=== PATIENT | male | born 1950 | race Caucasian/White ===

== ENCOUNTER → 2020-05-02 15:48 | Outpatient (CLI) | payer SELFPAY ==
--- NOTE | 2020-05-02 | DI.MRI.S_ITS ---
PROCEDURE: MR LUMBAR SPINE WO CON INDICATIONS: Pain, unspecified TECHNIQUE: Noncontrast sagittal T1 spin echo and T2 fast echo, sagittal STIR, axial T1 and T2 fast spin echo through the lumbar spine. In cases with scoliosis, additional coronal T2 fast spin echo may be performed. COMPARISON: [facility] [place], [place], XR LUMBAR SPINE 2 OR 3 VIEWS, 04/23/2020, 10:49. FINDINGS: Image quality: Excellent. Alignment and Curvature: Trace degenerative retrolisthesis of L5 on S1. Trace degenerative anterolisthesis of L4 on L5 and of L2 on L3. Bone Marrow: Marrow is of normal overall signal. No acute vertebral body compression fractures. Spinal Cord: Conus medullaris terminates at the T12-L1 level. Visualized cord demonstrates normal signal and size. Paraspinous Soft Tissues: No paravertebral masses. T12-L1: Mild facet hypertrophy. No canal stenosis or foraminal stenosis. L1-L2: Mild disc bulge. Facet and ligament hypertrophy. No significant canal stenosis. Mild bilateral foraminal stenosis. L2-L3: Disc bulge. Facet and ligament hypertrophy. Mild canal stenosis. No significant foraminal stenosis. L3-L4: Disc bulge. Facet and ligament hypertrophy. Mild canal stenosis. No foraminal stenosis. L4-L5: Trace degenerative anterolisthesis of L4 on L5. Diffuse disc bulge. Prominent facet and ligament hypertrophy. Severe canal stenosis. Mild bilateral foraminal stenosis. L5-S1: Disc bulge. Facet and ligament hypertrophy. Mild canal stenosis. Mild right foraminal stenosis. IMPRESSION: 1. Multilevel canal stenosis is mild at L2-L3, mild at L3-L4, severe at L4-L5, and mild at L5-S1. 2. Multilevel facet arthropathy. Dictated by: Anuj Lindo M.D. on 05/02/2020 at 17:04 Approved by: Anuj Lindo M.D. on 05/02/2020 at 17:09
== END ==
PROVIDERS: Family Provider Family Medicine; PCP Family Medicine; Referring Provider Family Medicine; Visit Provider Orthopaedic Surgery
DX: M54.5 Low back pain (principal); M79.605 Pain in left leg; M79.604 Pain in right leg; M47.816 Spondylosis without myelopathy or radiculopathy, lumbar region; M47.817 Spondylosis without myelopathy or radiculopathy, lumbosacral region; M48.061 Spinal stenosis, lumbar region without neurogenic claudication; M48.07 Spinal stenosis, lumbosacral region
CPT/HCPCS: 72148

== ENCOUNTER → 2021-04-27 11:06 | Outpatient (CLI) | payer SELFPAY ==
[2021-04-27 12:15] LABS: COVID19 -Nasal RAPID Negative (Negative)
== END ==
PROVIDERS: Family Provider Family Medicine; PCP Family Medicine; Visit Provider Physician Assistant
DX: Z01.812 Encounter for preprocedural laboratory examination (principal); Z20.822 Contact with and (suspected) exposure to COVID-19
CPT/HCPCS: 87635

== ENCOUNTER 2021-04-29 10:11 | Day surgery (SDC) | payer SELFPAY ==
[2021-04-23 14:56] VITALS: BMI 32.5
[2021-04-29] VITALS (9 sets, daily range): BP systolic 96–142; BP diastolic 42–82; PULSE 59–69; RESP 10–16; TEMP 36.3–36.9; O2SAT 95–100; BMI 32.4
--- NOTE | 2021-04-29 | DI.RAD.S_ITS ---
PROCEDURE: XR LUMBAR SPINE 2-3V INDICATIONS: L4-5 MICODISECTOMY TECHNIQUE: 2 intraoperative fluoroscopic views of the lumbar spine were acquired. COMPARISON: None. FINDINGS: Intraoperative fluoroscopic images of lower lumbar spine shows surgical instrument placed posteriorly at L4-5 level. IMPRESSION: Fluoro guidance was provided intraoperatively for micro discectomy at L4-5 level. Dictated by: Nemesio Ramirez M.D. on 04/29/2021 at 15:41 Approved by: Nemesio Ramirez M.D. on 04/29/2021 at 15:42
[2021-04-29] MEDS: LACTATED RINGERS 1,000 ML 42 ML IV ×2 (10:57→14:34)
[2021-04-29] MEDS: ACETAMINOPHEN 325 MG TABLET 975 MG PO (10:59)
--- NOTE | 2021-04-29 12:57 | PM.PREOP ---
Pre-operative Note COVID-19 COVID-19 status: Negative Result date/Date tested (Pos, Neg/Pending): 04/27/21 Interval Note History & Physical reviewed/Exam performed by Physician: Yes Changes to H&P: No
--- NOTE | 2021-04-29 13:27 | P.HP_ITS ---
History of Present Illness History of Present Illness Date Patient Seen: 04/29/21 Time Patient Seen: 12:00 Date of Onset of Symptoms: 12/19/20 Chief complaint: SDC Narrative: Mr. Jernigan is a 70 yo M with worsening bilateral leg pain and weak ness limiting his ability to perform activity of daily living. He failed 3 months of conservative care with worsening difficulty walking and standing due to bilateral leg weakness. After discussing risks and benefits of treatment options, he is scheduled for L4-5 laminectomy. Patient History Family & Social History Social History: household members spouse Tobacco & Substance use: Smoking Status Never smoker alcohol intake never Substance Use Type does not use Meds Home Medications and Allergies Home Medications Medication Instructions Recorded Confirmed Type aspirin 81 mg chewable tablet 81 mg PO DAILY 04/29/21 04/29/21 History gabapentin 800 mg tablet 900 mg PO BID 04/29/21 04/29/21 History losartan 100 1 tab PO DAILY 04/29/21 04/29/21 History mg-hydrochlorothiazide 25 mg tablet lovastatin 40 mg tablet 40 mg PO DAILY 04/29/21 04/29/21 History potassium chloride 10 mEq 10 meq PO DAILY 04/29/21 04/29/21 History capsule,extended release Allergies Allergy/AdvReac Type Severity Reaction Status Date / Time No Known Drug Allergies Allergy Verified 04/29/21 10:54 Exam Vital Signs (past 8 hours): - 04/29/21 10:39 Temperature 98.5 F Pulse Rate 59 L Respiratory Rate 16 Blood Pressure 142/82 H Pulse Oximetry 100 Oxygen Delivery Method Room Air Back/Spine/Pelvis Other: Pain with ROM of lumbar Neuro Other: bilateral leg weakness in TA, EHL, decreased sensibility bilateral L4, L5 dermatome. + straight leg raise in LLE. Assessment & Plan Assessment & Plan narrative: Patient with neurogenic claudication due to severe L4-5 spinal stenosis. I discussed treatment options with risks and benefits. Risks for surgery include but not limited to bleeding, infection, nerve/dura injury, need for additional procedure, persisting pain and weakness. Patient understands and would like to proceed with surgery. I scheduled him for L4-5 laminectomy.
[2021-04-29] MEDS: CEFAZOLIN 1 GM VIAL 2 GM IV (14:03)
--- NOTE | 2021-04-29 14:17 | SUR.OPER ---
Prone on spine table, head in foam head support, padded chest and pelvic supports, gel pad at knees, lower legs supported by pillows; nipples, genitalia and toes free of pressure, arms secured on foam padded arm boards at <90 degrees abduction. Tape over blanket at thigh secured to table.
[2021-04-29] MEDS: BUPIVACAINE 0.25% W/ EPI 30 ML VIAL 60 ML INJ (14:22)
[2021-04-29] MEDS: methylPREDNISolone acet DEPO 40 MG/ML VIAL IM (14:35)
--- NOTE | 2021-04-29 14:41 | P.OP_ITS ---
Operative Date/Time/Diagnoses Date of procedure: 04/29/21 Time of procedure: 13:50 Pre-op diagnosis: 1. L4-5 spinal stenosis 2. Neurogenic claudication Post-op diagnosis: same Procedure & Clinicians Procedure: 1. L4-5 laminectomy with partial facetecomy 2. Utilization of microsurgical technique and operating microscope Same procedure as scheduled: Yes Indications: Patient has been having chronic back pain and worsening symptoms of neurogenic claudication. Patient failed multiple conservative management with worsening pain weakness and numbness in his lower extremity. Patient has been having difficulty performing activity of daily living. After discussing risks benefits of treatment options, patient elected proceed with surgery. Surgeon: Reanna Isabel Speech And Drama Teacher: Franky Prieto Click Yes if Unassisted: No Anesthesia Type: General Operative Notes Closure Type: primary Specimen(s): none sent Estimated Blood Loss (mL): 10 Blood products transfused: none Procedure in detail: Patient was seen in the preoperative area. Risks and benefits of the surgery was discussed with the patient. Informed consent was obtained from the patient and placed in the chart. Surgical site was marked. Patient was taken to the operative room. General anesthesia was administered. Prophylactic antibiotic was given to the patient less than 30 min before the incision was made. Patient was placed into a prone position on the Jonh table. Patient's back was then prepped and draped in the sterile fashion. Time- out was performed at this time. Using AP and lateral C-arm imaging the interval between L4-5 was identified and marked on patient's back. A 1 inch incision 1 in from midline was made on the left side. The fascia was incised in line with skin incision. Globus MARS retractors was placed inside the incision and docked onto the L4 lamina. Using microsurgical technique and operating microscope, a L4 laminectomy was performed using a Kerrison rongeur. Liagamentum flavum was resected at the site of the laminotomy. Either side of the dura was exposed. Bilateral partial facetcomies was performed to further decompress the lateral recess. After the laminectomy was completed, the area medial lateral superior and inferior to the area of the laminectomy was inspected and explored using a micro curette. No other impinging structure was identified. The wound was then irrigated with sterile normal saline. 40 mg Depo-Medrol was placed into the epidural space. The deep fascia was closed with 1-0 Vicryl. The subcutaneous tissue was closed with 2-0 Vicryl. The skin was closed with skin monty. Patient tolerated the procedure well. There were no complications. Patient was transferred recovery room in stable condition. Complications: none Post-operative Condition: stable Disposition: PACU Plan for aftercare: discharge to home
[2021-04-29] MEDS: OXYCODONE IR 5 MG TABLET PO ×2 (15:42→16:19)
[2021-04-29] MEDS: hydrOXYzine pamoate 25 MG CAPSULE PO (16:20)
== END 2021-04-29 16:44 | disposition home or self-care (01) ==
PROVIDERS: Family Provider Family Medicine; PCP Internal Medicine; Referring Provider Orthopaedic Surgery Orthopaedic Surgery of the Spine; Visit Provider Orthopaedic Surgery Orthopaedic Surgery of the Spine
PROC: (CPT 63047; principal; 2021-04-29 12:15)
DX: M48.062 Spinal stenosis, lumbar region with neurogenic claudication (principal); M43.16 Spondylolisthesis, lumbar region; G47.33 Obstructive sleep apnea (adult) (pediatric)
CPT/HCPCS: 63047; 36415; 72100; 76000; J0330; J0690; J1030; J1100; J2250; J2405; J2704; J3010

== ENCOUNTER → 2023-02-11 13:06 | Outpatient (CLI) | payer SELFPAY ==
--- NOTE | 2023-02-11 | DI.MRI.S_ITS ---
PROCEDURE: MR LUMBAR SPINE WO/W CON INDICATIONS: Osseous stenosis of neural canal of lumbar region TECHNIQUE: Noncontrast sagittal T1 spin echo and T2 fast echo, sagittal STIR, and T2 fast spin echo through the lumbar spine. In cases with scoliosis, additional coronal T2 fast spin echo may be performed. COMPARISON: None. FINDINGS: Image quality: Excellent. Alignment and Curvature: There is minimal anterolisthesis seen at the L4-L5 level. No associated pars defects are seen. Minimal retrolisthesis can be seen at L5-S1. Bone Marrow: Marrow is of normal overall signal. No acute vertebral body compression fractures. Spinal Cord: Conus medullaris terminates at the T12-L1 level. Visualized cord demonstrates normal signal and size. Paraspinous Soft Tissues: No paravertebral masses. T12-L1: Normal appearance. L1-L2: The disc height is well-preserved. Loss of disc signal is seen at this level. Moderate disc bulge is seen, which is eccentric to the right, with a right foraminal disc protrusion, as on series 5, image 11. Mild facet joint hypertrophy is seen. Moderate bilateral neural foraminal narrowing is seen. Mild central canal narrowing is seen. L2-L3: The disc height is well-preserved. Loss of disc signal is seen at this level. Moderate generalized disc bulge is seen. There is moderate facet hypertrophy seen, left worse than right. Moderate bilateral neural foraminal narrowing can be seen, left worse than right. Moderate central canal narrowing is seen. L3-L4: The disc height is well-preserved. Loss of disc signal is seen at this level. Moderate generalized disc bulge is seen. There is a superimposed central disc protrusion. Mild facet joint hypertrophy is seen. There is moderate left-sided and mild right-sided neural foraminal narrowing. Moderate central canal narrowing is seen. L4-L5: The disc height is well-preserved. Loss of disc signal is seen at this level. Moderate generalized disc bulge is seen. There is a superimposed central disc protrusion. At least moderate facet hypertrophy is seen. There is at least moderate right-sided neural foraminal narrowing, with a degree of compression upon the exiting right L4 nerve root. Moderate left-sided neural foraminal narrowing is seen. Moderate to severe central canal narrowing is seen. L5-S1: Moderate loss of disc height is seen. Loss of disc signal is seen. Moderate disc bulge is seen, which is eccentric to the right. There is [id number] right-sided and mild left-sided facet hypertrophy. There is at least moderate bilateral neural foraminal narrowing seen, right worse than left. There is a degree of compression seen upon the exiting nerve roots. Moderate central canal narrowing is seen. IMPRESSION: Multiple levels of lumbar spine degenerative change are seen, which are worst at L4-L5 and L5-S1. No abnormal enhancement is seen. Dictated by: Chintan Orona M.D. on 02/11/2023 at 14:54 Approved by: Chintan Orona M.D. on 02/11/2023 at 14:58
== END ==
PROVIDERS: Family Provider Family Medicine; PCP Internal Medicine; Referring Provider Internal Medicine; Visit Provider Internal Medicine
DX: M99.33 Osseous stenosis of neural canal of lumbar region (principal); M47.816 Spondylosis without myelopathy or radiculopathy, lumbar region; M47.817 Spondylosis without myelopathy or radiculopathy, lumbosacral region
CPT/HCPCS: 72158

== ENCOUNTER 2023-04-14 10:14 | Day surgery (SDC) | payer SELFPAY ==
[2023-04-14 10:55] VITALS: BP 143/78; PULSE 55; RESP 16; TEMP 36.3; O2SAT 98; BMI 33.2
--- NOTE | 2023-04-14 11:32 | PM.PREOP ---
Pre-operative Note Interval Note History & Physical reviewed/Exam performed by Physician: Yes Changes to H&P: No
[2023-04-14] MEDS: BUPIVACAINE 0.25% (PF) 30 ML, EPINEPHrine 0.15 MG INJ (12:25)
[2023-04-14 12:31] VITALS: BP 85/32; PULSE 59; RESP 16; TEMP 36.1; O2SAT 96
[2023-04-14 12:34] VITALS: BP 87/38; PULSE 60; RESP 12; O2SAT 95
--- NOTE | 2023-04-14 12:36 | PM.OP.1 ---
Operative Date/Time/Diagnoses Date of procedure: 04/14/23 Time of procedure: 12:36 Pre-op diagnosis: Internal hemorrhoids Post-op diagnosis: same Procedure & Clinicians Procedure: Hemorrhoidal banding with sedation Same procedure as scheduled: Yes Indications: 72-year-old man with a symptomatic chronically bleeding internal hemorrhoids who is failed conservative treatment here for banding. Surgeon: Orlando Peña Anesthesia Type: Sedation Operative Notes Findings: Grade 2 internal hemorrhoids. Estimated Blood Loss (mL): 1 Procedure in detail: Patient was brought to the endoscopy room placed supine on the table. Time-out performed. Sedation was induced. Lidocaine was injected 10 mL as a rectal block. The left lateral and right posterior hemorrhoidal pedicles freely prolapsed. Each pedicle was grasped with a suction elevated and then doubly ligated at its base. He tolerated the procedure well. Complications: none Post-operative Condition: stable Disposition: same day surgery
[2023-04-14 12:37] VITALS: BP 110/68; BP 88/39; PULSE 57; PULSE 66; RESP 13; RESP 18; O2SAT 94; O2SAT 96
[2023-04-14 12:46] VITALS: BP 113/61; PULSE 56; RESP 12; O2SAT 96
== END 2023-04-14 13:09 | disposition home or self-care (01) ==
PROVIDERS: Family Provider Family Medicine; PCP Internal Medicine; Referring Provider Surgery; Visit Provider Surgery
PROC: 0DJD8ZZ Inspection of Lower Intestinal Tract, Via Natural or Artificial Opening Endoscopic (ICD-10-PCS; CPT 45378; principal; 2023-04-14 11:15)
DX: K64.1 Second degree hemorrhoids (principal)
CPT/HCPCS: 46221; J0171; J2250; J2704; J3010